=== PATIENT | female | born 1950 | race African-American/Black ===

== ENCOUNTER 2016-11-21 16:05 | Emergency (ER) | payer MEDICARE, SELFPAY ==
[2016-11-21] MEDS ORDERED: Ketorolac Tromethamine 30 MG/ML VIAL ONE (16:51)
[2016-11-21] MEDS ORDERED: diphenhydrAMINE HCl 50 MG/ML 1 ML VIAL ONE (16:51)
[2016-11-21] MEDS ORDERED: Metoclopramide HCl 10 MG/2 ML VIAL ONE (16:51)
--- NOTE | 2016-11-21 17:59 | CT ---
CT BRAIN NONCONTRAST: DATE: 11-21-16 TIME: 4:44 p.m. HISTORY: 65-year-old female with acute severe headache. COMPARISON: 02-24-15 FINDINGS: The calvarium is intact. Again demonstrated is the severe partial opacification by severe mucosal th ickening, of the left sphenoid air cell. This is surrounded by sclerosis and thickening of the osseo us roberts of the left sphenoid air cell. The right sphenoid air cell, bilateral ethmoid air cells, b ilateral frontal sinuses, and bilateral tympanomastoid cavities, are clear. Again demonstrated is th e cystic lesion at the temporal horn of the left lateral ventricle. This could either represent ex v acuo dilation of the left temporal horn or could represent an intraventricular ependymal cyst. The r est of the ventricles are normal in size and configuration. No mass effect or midline shift. No acut e intraaxial or extraaxial hemorrhage. No interval change overall. IMPRESSION: 1. No acute intracranial findings. 2. 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 3. Severe chronic sinusitis isolated to the left sphenoid air cell. 4. 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 [facility] POS: [facility]
== END 2016-11-21 18:11 | disposition home or self-care (01) ==
LOC: BURERS 16:05
DX: G43.909 Migraine, unspecified, not intractable, without status migrainosus (principal); I10 Essential (primary) hypertension; F32.9 Major depressive disorder, single episode, unspecified
CPT/HCPCS: 70450; 96361; 96374; 96375; J1200; J1885; J2765

== ENCOUNTER 2017-04-07 10:53 | Emergency (ER) | payer MEDICARE | END 2017-04-07 11:23 | disposition home or self-care (01) | LOC: BURERS 10:53 | DX: I10 Essential (primary) hypertension (principal); F32.9 Major depressive disorder, single episode, unspecified; Z91.14 Patient's other noncompliance with medication regimen | CPT/HCPCS: 94760; 99284 ==